=== PATIENT | female | born 1975 | race Caucasian/White ===

== ENCOUNTER 2016-11-10 14:53 | Emergency (ER) | payer MEDICAID, OTHER ==
[~2016-11-10] VITALS: Ht 162.6 cm; Wt 76.0 kg
[2016-11-10 15:05] VITALS: Ht 162.6 cm; Wt 76.0 kg
[2016-11-10 19:22] LABS: BASOPHILS % 0.5 % (0.0-2.0); EOSINOPHILS # 0.2 10^3/ul (0.0-0.5); EOSINOPHILS % 2.1 % (0.0-7.0); HEMOGLOBIN 14.8 g/dl (12.0-16.0); LYMPHOCYTES # 3.3 10^3/ul (0.8-2.9); LYMPHOCYTES % 43.8 % (15.0-51.0); MEAN CORPUSCULAR HEMOGLOBIN 30.1 pg (29.0-33.0); MEAN CORPUSCULAR HGB CONC 34.4 g/dl (32.0-37.0); MEAN CORPUSCULAR VOLUME 87.6 fl (82.0-101.0); MEAN PLATELET VOLUME 9.7 fl (7.4-10.4); MONOCYTE # 0.7 10^3/ul (0.3-0.9); MONOCYTES % 9.1 % (0.0-11.0); NEUTROPHIL # 3.4 10^3/ul (1.6-7.5); NEUTROPHILS % 44.5 % (39.0-77.0); PLATELET COUNT 206 10^3/UL (140-440); RED BLOOD COUNT 4.91 10^6/ul (4.20-5.40); RED CELL DISTRIBUTION WIDTH 12.8 % (11.5-14.5); UNCORRECTED WBC 7.6 10^3/ul (4.8-10.8); WHITE BLOOD COUNT 7.6 10^3/ul (4.8-10.8)
[2016-11-10 19:27] LABS: CONDITION 1
[2016-11-10 19:39] LABS: ALBUMIN 4.8 g/dl (3.3-4.9); POTASSIUM 4.3 mmol/L (3.5-5.1)
[2016-11-10 19:41] LABS: BILIRUBIN,INDIRECT 0.2 mg/dl (0-1.1); BILIRUBIN,TOTAL 0.2 mg/dl (0.2-1.3); CREATININE 0.68 mg/dl (0.44-1.00)
[2016-11-10 19:42] LABS: ALBUMIN/GLOBULIN RATIO 1.11; CALCIUM 9.5 mg/dl (8.4-10.2); TOTAL PROTEIN 9.1 g/dl (6.1-8.1)
--- NOTE | 2016-11-10 19:56 | RADRPT ---
PROCEDURE: XR Chest. CLINICAL INDICATION: Chest pain. TECHNIQUE: Single frontal view of the chest was obtained COMPARISON: None ABNORMAL RESULTS: 3 CM MASS AT THE MEDIAL LEFT APEX REPRESENTS NEOPLASM, AND RECOMMEND CT CHEST. FINDINGS: The heart and mediastinum are within normal limits. Calcified thoracic aorta. 3 cm mass at medial left apex, and is represent neoplasm until proven otherwise. Recommend CT exami nation of the chest for further evaluation. There is no pleural effusion or pneumothorax. IMPRESSION: 3 cm mass at the medial left apex represents neoplasm until proven otherwise, and recommend CT corre lation. ABNORMAL RESULTS: 3 CM MASS AT THE MEDIAL LEFT APEX REPRESENTS NEOPLASM, AND RECOMMEND CT CHEST. RPTAT: [facility] [place] Date Time Electronically viewed and signed by Physician [place] on 11/10/2016 19:56 RS/
[2016-11-10 20:12] LABS: ADD UMIC YES; URINE BILIRUBIN (Dip) NEGATIVE (NEGATIVE); URINE BLOOD (Dip) 3+ (NEGATIVE); URINE COLOR LT. YELLOW (YELLOW); URINE GLUCOSE (Dip) NEGATIVE (NEGATIVE); URINE KETONES (Dip) NEGATIVE (NEGATIVE); URINE LEUKOCYTE ESTERASE (Dip) NEGATIVE (NEGATIVE); URINE NITRITE (Dip) NEGATIVE (NEGATIVE); URINE TOTAL PROTEIN (Dip) NEGATIVE (NEGATIVE); URINE UROBILINOGEN (Dip) 0.2 E.U./dL (0.1-1.0)
--- NOTE | 2016-11-10 20:13 | RADRPT ---
PROCEDURE: US Pelvis. CLINICAL INDICATION: Vaginal bleeding. TECHNIQUE: Multiple sonographic images of the pelvis were obtained utilizing a transabdominal and endovaginal technique. The images were reviewed on a PACS workstation. COMPARISON: None. FINDINGS: The uterus is visualized and measures 122 x 47 x 59 mm. 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 MRI would be of further use. The bilateral endometrial echo complexes are normal and each measure 8 mm. There is no evidenc e for free fluid. Nabothian cysts are seen. The right ovary has a normal echotexture and measures 24 x 10 x 11 mm . The left ovary has a large ovarian cyst measuring 31 mm, and the left ovary otherwise demonstrates normal echotexture and measu res 31 x 27 x 26 mm. No adnexal masses are noted. IMPRESSION: 1. 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 2. Bilateral endometrium are unremarkable, measuring up to 8 mm. 3. Large left ovarian cyst measures 31 mm. RPTAT: [facility] [place] Date Time Electronically viewed and signed by Physician [place] on 11/10/2016 20:12 RS/
[2016-11-10 20:26] LABS: BACTERIA,URINE FEW; SQUAMOUS EPITHELIAL CELL,UR FEW; URINE RBCS >50 /HPF (0)
--- NOTE | 2016-11-10 21:50 | RADRPT ---
PROCEDURE: CT Chest without contrast. CLINICAL INDICATION: Chest pain. Abnormal chest x-ray with a 3 cm mass in the left upper lobe. TECHNIQUE: Helical axial sections were obtained through the chest without intravenous contrast enh ancement. Coronal and sagittal reformatted images were obtained from the axial source images. Total exam DLP is 384.99 mGy-cm. CTDIvol is 10.09 mGy. One or more of the following dose reduction carlos hniques were used: Automated exposure control, adjustment of the mA and/or kV according to patient s ize, use of iterative reconstruction technique. COMPARISON: Chest x-ray done earlier the same day. FINDINGS: The lungs are clear with no airspace or interstitial disease. There is no pulmonary nodule or mass lesion. In particular, there is no abnormality in the left upp er lobe medially. The density on chest radiograph may have been due to overlying soft tissues. There is no mediastinal or hilar lymphadenopathy or mass. There is no axillary, supraclavicular, or internal mammary lymphadenopathy. The thoracic aorta is not dilated. The heart size is normal. There is no pleural effusion or pericardial effusion. Images through the upper abdomen demonstrate mildly diffusely decreased attenuation of the liver con sistent with fatty metamorphosis. The visualized portions of the liver, spleen, and adrenals are ot herwise normal. The osseous structures are unremarkable with no fracture or lytic lesion. IMPRESSION: 1. No abnormality in the left upper lobe medially at the site of the chest radiograph findings. Th is was probably due to overlying soft tissues. 2. Fatty liver. 3. Otherwise unremarkable noncontrast CT scan of the chest. RPTAT: QQ .Eladio Hopkins MD, Date Time Electronically viewed and signed by .Eladio Hopkins MD, on 11/10/2016 21:50 .R/
[2016-11-10] MEDS ORDERED: IBUP-1542 PO (22:07)
--- NOTE | 2016-11-10 22:16 | ERD ---
ER Documentation Chief Complaint Date/Time DATE: 11/10/16 TIME: 22:10 Chief Complaint LOWER ABDOMINAL PAIN, VAG BLEEDING X 3 MOS HPI 41-year-old female with no significant past medical history presents the ED complaining of vaginal bleeding that started 1 month ago. States that she has had to change 12 pads per day. States that her last menses was on November 04, 2015. States that normally her menses are regular however she did not have her menses for the past 3 months prior to this last menses until 1 month ago. States that she is a . Denies being sexually active. States that she has had a previous , cholecystectomy and appendectomy. States that she also has slight intermittent chest pain that started 2 months ago that does not radiate. Describes as a sharp feeling and rates it a 9 out of 10. Denies any family history of heart attacks. Denies any recent traveling or calf pain. ROS All systems reviewed and are negative except as per history of present illness. Medications Home Meds Active Scripts Ibuprofen* (Motrin*) 600 Mg Tab, 600 MG PO Q6, #30 TAB Prov:LAUREL BRODERICK PA-C 11/10/16 Allergies Allergies: Coded Allergies: No Known Allergy (Unverified , 10/14/12) PMhx/Soc History of Surgery: Yes (,Appy) Anesthesia Reaction: No Hx Neurological Disorder: No Hx Respiratory Disorders: No Hx Cardiac Disorders: No Hx Psychiatric Problems: No Hx Miscellaneous Medical Probl: Yes (Dysfunctional Uterine Bleed) Hx Alcohol Use: No Hx Substance Use: No Hx Tobacco Use: No Smoking Status: Never smoker Physical Exam Vitals Vital Signs Date Time Temp Pulse Resp B/P Pulse Ox O2 Delivery O2 Flow Rate FiO2 11/10/16 22:58 99.0 65 22 111/78 99 Room Air 11/10/16 15:05 98.1 80 18 154/73 98 Physical Exam Const: [id number], well-nourished. In no acute distress. Head: Atraumatic, normocephalic Eyes: Normal Conjunctiva without injection. No purulent discharge. PERRLA. EOMI ENT: Normal external ear. Ear canal without erythema. Tympanic membrane pearly felix without effusion or bulging. Nasal canal clear with normal turbinates. Moist oropharynx without tonsillar exudates. Non-erythematous pharynx. Uvula midline. No drooling. No trismus. Neck: No cervical midline tenderness. Full range of motion. No meningismus. No cervical lymphadenopathy. No JVD. Resp: Clear to auscultation bilaterally. No wheezing, rhonchi, rales, or crackles. No accessory muscle use. No retractions. Cardio: Regular rate and rhythm. No murmurs, rubs or gallops. Chest: Reproducible pain noted on the anterior chest. Abd: Soft, non tender, non distended. Normal bowel sounds. No palpable masses. No rebound tenderness. No guarding. Negative McBurney's Point. Negative Gomez's Sign. : Looking MDM for examination details. Skin: Normal skin turgor. No petechiae or rashes Back: No midline tenderness. No CVA tenderness. Ext: No cyanosis, or edema. Distal pulses intact bilaterally. Neur: Awake and alert. Normal gait. Normal coordination. Cranial Nerves II- VII intact. Normal finger to nose. Muscle strength 5/5. Sensation intact. Psych: Normal Mood and Affect Result Diagram: 11/10/16185611/10/161856 Results 24 hrs Laboratory Tests Test 11/10/16 18:57 Alanine Aminotransferase (ALT/SGPT) 60IU/L Albumin 4.8g/dl Albumin/Globulin Ratio 1.11 Alkaline Phosphatase 73IU/L Anion Gap 20 Aspartate Amino Transf (AST/SGOT) 44IU/L Basophils # 0.010^3/ul Basophils % 0.5% Blood Urea Nitrogen 12mg/dl Calcium Level 9.5mg/dl Carbon Dioxide Level 24mmol/L Chloride Level 103mmol/L Creatinine 0.68mg/dl Direct Bilirubin 0.00mg/dl Eosinophils # 0.210^3/ul Eosinophils % 2.1% Globulin 4.30g/dl Glucose Level 79mg/dl Hematocrit 43.0% Hemoglobin 14.8g/dl Indirect Bilirubin 0.2mg/dl Lipase 90U/L Lymphocytes # 3.310^3/ul Lymphocytes % 43.8% Mean Corpuscular Hemoglobin 30.1pg Mean Corpuscular Hemoglobin Concent 34.4g/dl Mean Corpuscular Volume 87.6fl Mean Platelet Volume 9.7fl Monocytes # 0.710^3/ul Monocytes % 9.1% Neutrophils # 3.410^3/ul Neutrophils % 44.5% Nucleated Red Blood Cells # 0.010^3/ul Nucleated Red Blood Cells % 0.0/100WBC Platelet Count 30693^3/UL Potassium Level 4.3mmol/L Red Blood Count 4.9110^6/ul Red Cell Distribution Width 12.8% Sodium Level 143mmol/L Total Bilirubin 0.2mg/dl Total Protein 9.1g/dl Urine Bacteria FEW Urine Bilirubin NEGATIVE Urine Clarity CLEAR Urine Color LT. YELLOW Urine Glucose NEGATIVE% Urine Hemoglobin 3+ Urine Ketones NEGATIVE Urine Leukocyte Esterase NEGATIVE Urine Microscopic RBC >50/HPF Urine Microscopic WBC 0-2/HPF Urine Nitrite NEGATIVE Urine Specific Wells 1.010 Urine Squamous Epithelial Cells FEW Urine Total Protein NEGATIVE Urine Urobilinogen 0.2 E.U./dL Urine pH 8.0 White Blood Count 7.610^3/ul Procedures/MDM This is a 41-year-old female who is a presents the ED complaining of vaginal bleeding that started 1 month ago. Patient is afebrile nontoxic appearing. Patient has normal vital signs. An ultrasound, beta-hCG, CBC, type and RH, UA was ordered to evaluate patient. Since patient reported of intermittent chest pain since 2 months ago, CXR and EKG was ordered to further evaluate patient. CBC: No leukocytosis. No e/o of systemic infection. No e/o anemia. CMP: No e/o severe acidosis, alkalosis, renal failure, diabetic ketoacidosis, liver disease Lipase within normal limits. Urine: No leukocyte esterase, no nitrites, no hematuria. 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 CLINICAL INDICATION: Vaginal bleeding. TECHNIQUE: Multiple sonographic images of the pelvis were obtained utilizing a transabdominal and endovaginal technique. The images were reviewed on a PACS workstation. COMPARISON: None. FINDINGS: The uterus is visualized and measures 122 x 47 x 59 mm. 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 MRI would be of further use. The bilateral endometrial echo complexes are normal and each measure 8 mm. There is no evidence for free fluid. Nabothian cysts are seen. The right ovary has a normal echotexture and measures 24 x 10 x 11 mm . The left ovary has a large ovarian cyst measuring 31 mm, and the left ovary otherwise demonstrates normal echotexture and measures 31 x 27 x 26 mm. No adnexal masses are noted. IMPRESSION: 1. 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 2. Bilateral endometrium are unremarkable, measuring up to 8 mm. 3. Large left ovarian cyst measures 31 mm. Patient's bleeding symptoms have stabilized while in the department. Patient likely has dysfunctional uterine bleeding. This case was discussed with my supervising physician, Dr. Dalton. Low suspicion for symptomatic anemia, ectopic , sepsis, PID, appendicitis, ovarian torsion, tubo-ovarian abscess, surgical abdomen, or other emergent conditions. PROCEDURE: XR Chest. CLINICAL INDICATION: Chest pain. TECHNIQUE: Single frontal view of the chest was obtained COMPARISON: None ABNORMAL RESULTS: 3 CM MASS AT THE MEDIAL LEFT APEX REPRESENTS NEOPLASM, AND RECOMMEND CT CHEST. FINDINGS: The heart and mediastinum are within normal limits. Calcified thoracic aorta. 3 cm mass at medial left apex, and is represent neoplasm until proven otherwise. Recommend CT examination of the chest for further evaluation. There is no pleural effusion or pneumothorax. IMPRESSION: 3 cm mass at the medial left apex represents neoplasm until proven otherwise, and recommend CT correlation. ABNORMAL RESULTS: 3 CM MASS AT THE MEDIAL LEFT APEX REPRESENTS NEOPLASM, AND RECOMMEND CT CHEST. PROCEDURE: CT Chest without contrast. CLINICAL INDICATION: Chest pain. Abnormal chest x-ray with a 3 cm mass in the left upper lobe. TECHNIQUE: Helical axial sections were obtained through the chest without intravenous contrast enhancement. Coronal and sagittal reformatted images were obtained from the axial source images. Total exam DLP is 384.99 mGy-cm. CTDIvol is 10.09 mGy. One or more of the following dose reduction techniques were used: Automated exposure control, adjustment of the mA and/or kV according to patient size, use of iterative reconstruction technique. COMPARISON: Chest x-ray done earlier the same day. FINDINGS: The lungs are clear with no airspace or interstitial disease. There is no pulmonary nodule or mass lesion. In particular, there is no abnormality in the left upper lobe medially. The density on chest radiograph may have been due to overlying soft tissues. There is no mediastinal or hilar lymphadenopathy or mass. There is no axillary, supraclavicular, or internal mammary lymphadenopathy. The thoracic aorta is not dilated. The heart size is normal. There is no pleural effusion or pericardial effusion. Images through the upper abdomen demonstrate mildly diffusely decreased attenuation of the liver consistent with fatty metamorphosis. The visualized portions of the liver, spleen, and adrenals are otherwise normal. The osseous structures are unremarkable with no fracture or lytic lesion. IMPRESSION: 1. No abnormality in the left upper lobe medially at the site of the chest radiograph findings. This was probably due to overlying soft tissues. 2. Fatty liver. 3. Otherwise unremarkable noncontrast CT scan of the chest. EKG reviewed and interpreted by Dr. Dalton Rate/Rhythm: [68 bpm, Normal Sinus Rhythm] No ectopy, no ST elevations, normal axis. QRS, ST, T-waves: [No changes consistent w/ acute ischemia] Impression: [No evidence of ischemia or arrhythmia] Patient reports that she feels nervous. Patient can likely have possible anxiety. No evidence of mass on CT of chest. Low suspicion for acute myocardial infarction, pneumothorax, pneumonia, cardiac tamponade, pulmonary embolism, AAA , aortic dissection, Boerhaave's syndrome, cardiac dysrhythmias,meningitis, intracranial bleed, seizure, stroke, TIA or other emergent conditions. This case was discussed with my supervising physician, Dr. Dalton who agreed with the management and discharge plan. Discharge medications: Ibuprofen Patient to follow up with [facility] fabricator and assembler in 2 days for further evaluation and treatment. Patient is to return sooner to the ED for any worsening symptoms. Patient's questions were answered. Patient understood and agreed with discharge plan. Departure Diagnosis: Primary Impression: Dysfunctional uterine bleeding Additional Impression: Chest pain Chest pain type: unspecified Qualified Code: R07.9 - Chest pain, unspecified type Condition: Stable Patient Instructions: Anxiety Reaction, Chest Pain, Uncertain Cause, Chest Wall Pain, Costochondritis, Dysfunctional Uterine Bleeding Referrals: COMMUNITY CLINICS YOU HAVE RECEIVED A MEDICAL SCREENING EXAM AND THE RESULTS INDICATE THAT YOU DO NOT HAVE A CONDITION THAT REQUIRES URGENT TREATMENT IN THE EMERGENCY DEPARTMENT. FURTHER EVALUATION AND TREATMENT OF YOUR CONDITION CAN WAIT UNTIL YOU ARE SEEN IN YOUR DOCTORS OFFICE WITHIN THE NEXT 1-2 DAYS. IT IS YOUR RESPONSIBILITY TO MAKE AN APPOINTMENT FOR FOLOW-UP CARE. IF YOU HAVE A PRIMARY DOCTOR --you should call your primary doctor and schedule an appointment IF YOU DO NOT HAVE A PRIMARY DOCTOR YOU CAN CALL OUR PHYSICIAN REFERRAL HOTLINE AT IF YOU CAN NOT AFFORD TO SEE A PHYSICIAN YOU CAN CHOSE FROM THE FOLLOWING [facility] CLINICS [facility] [address] [facility] [address] [facility] [address] [facility] [address] [facility] [address] [facility]. [facility] [address] [facility]. [facility] YOU HAVE RECEIVED A MEDICAL SCREENING EXAM AND THE RESULTS INDICATE THAT YOU DO NOT HAVE A CONDITION THAT REQUIRES URGENT TREATMENT IN THE EMERGENCY DEPARTMENT. FURTHER EVALUATION AND TREATMENT OF YOUR CONDITION CAN WAIT UNTIL YOU ARE SEEN IN YOUR DOCTORS OFFICE WITHIN THE NEXT 1-2 DAYS. IT IS YOUR RESPONSIBILITY TO MAKE AN APPOINTMENT FOR [facility] CARE. IF YOU HAVE A PRIMARY DOCTOR --you should call your primary doctor and schedule and appointment IF YOU DO NOT HAVE A PRIMARY DOCTOR YOU CAN CALL OUR PHYSICIAN REFERRAL HOTLINE AT . IF YOU CAN NOT AFFORD TO SEE A PHYSICIAN YOU CAN CHOSE FROM THE FOLLOWING [facility] INSTITUTIONS: [facility] [address] [place] [address] [facility] [address] [place] [address] [facility] [address] [place] [address] [facility] [employer] [place] [address] [facility] [address] [place], [place] [phone] OFFICE FAX RADHA RICHARDS [address] [place] [address] [address] [facility] [address] [place] [place] [phone] SOTO, [facility] [address] [facility] [address] [address] GOLDBERG, [place] [address] [place] [place] [phone] [facility] [place] [address] [place] [address] [address] [facility] [address] - [address] GUAMAN, MARK [address], [facility] [phone] DR NATARAJAN, A[place] [address] [facility] [address], [facility] [id number] DR AHUMADA, FART[place] [address] [place], [place] [phone] [facility] Hours: 8:00 am - 5:00 pm Additional Instructions: Seguimiento con gusman PCP ulices remisin a Ginecolog y neumlogo Regrese a estas instalaciones si no se mejora kj esperbamos o kj le dimarialuisamos. LAUREL BRODERICK PA-C Nov 10, 2016 22:16
[2016-11-10 22:58] VITALS: BP 111/78; PULSE 65; RESP 22; TEMP 99
== END 2016-11-10 22:45 | disposition home or self-care (01) ==
LOC: FTE 14:53
DX: N93.8 Other specified abnormal uterine and vaginal bleeding (principal); R07.9 Chest pain, unspecified
CPT/HCPCS: 36415; 71010; 71250; 76830; 76856; 80053; 81001; 83690; 85025; 93005; Z7502; 81003

== ENCOUNTER 2017-01-24 01:35 | Emergency (ER) | payer OTHER ==
[~2017-01-24] VITALS: Ht 165.1 cm; Wt 77.3 kg
[~2017-01-24 01:35] MED LIST: IBUP-1542 PO
[2017-01-24 01:36] VITALS: Ht 165.1 cm; Wt 77.3 kg
[2017-01-24] MEDS ORDERED: SOD CHLORIDE 0.9% 1,000 ML IV STA (03:20)
[2017-01-24] MEDS ORDERED: ONDANSETRON 4 MG INJ IV STA (03:20)
[2017-01-24] MEDS ORDERED: morphine 4 MG/ML VIAL IV STA (03:20)
[2017-01-24 03:46] LABS: ADD SCAN DIFF NO
[2017-01-24 03:50] LABS: BASOPHILS % 0.7 % (0.0-2.0); EOSINOPHILS # 0.2 10^3/ul (0.0-0.5); EOSINOPHILS % 2.7 % (0.0-7.0); HEMATOCRIT 40.6 % (37.0-47.0); HEMOGLOBIN 13.6 g/dl (12.0-16.0); LYMPHOCYTES # 2.7 10^3/ul (0.8-2.9); LYMPHOCYTES % 49.5 % (15.0-51.0); MEAN CORPUSCULAR HEMOGLOBIN 29.6 pg (29.0-33.0); MEAN CORPUSCULAR HGB CONC 33.5 g/dl (32.0-37.0); MEAN CORPUSCULAR VOLUME 88.5 fl (82.0-101.0); MEAN PLATELET VOLUME 11.1 fl (7.4-10.4); MONOCYTE # 0.5 10^3/ul (0.3-0.9); MONOCYTES % 9.7 % (0.0-11.0); NEUTROPHILS % 37.2 % (39.0-77.0); PLATELET COUNT 283 10^3/UL (140-415); RED BLOOD COUNT 4.59 10^6/ul (4.20-5.40); RED CELL DISTRIBUTION WIDTH 12.5 % (11.5-14.5); WHITE BLOOD COUNT 5.5 10^3/ul (4.8-10.8)
[2017-01-24 04:00] LABS: PLATELET ESTIMATE PLT APPEAR ADEQUATE
--- NOTE | 2017-01-24 04:00 | ERD ---
ER Documentation Chief Complaint Date/Time DATE: 01/24/17 TIME: 03:58 Chief Complaint VAGINAL BLEEDING/CRAMPING. 1 PAD/20MIN X 4 DAYS. HPI 41-year-old female presents here in emergency department for complaints of vaginal bleeding for 4 days, soaked multiple pads every day, patient has had problems with heavy vaginal bleeding before, has never seen a gynecology specialist. Patient's complaining of pelvic pain cramping pain, 6/10 scale, not better or worse with anything. Patient denies being . Patient's last menstrual period was 12/14/2016, lasted for 10 days. Patient denies any other bleeding symptoms, denies any ecchymosis, gum bleeding, blood in the stool or black stool. Patient denies any hematuria. ROS All systems reviewed and are negative except as per history of present illness. Medications Home Meds Active Scripts Ibuprofen* (Motrin*) 600 Mg Tab, 600 MG PO Q6, #30 TAB Prov:LAUREL BRODERICK PA-C 11/10/16 Allergies Allergies: Coded Allergies: No Known Allergy (Unverified , 10/14/12) PMhx/Soc History of Surgery: Yes (, appendectomy) Anesthesia Reaction: No Hx Neurological Disorder: No Hx Respiratory Disorders: No Hx Cardiac Disorders: No Hx Psychiatric Problems: No Hx Miscellaneous Medical Probl: Yes (Dysfunctional Uterine Bleed) Hx Alcohol Use: No Hx Substance Use: No Hx Tobacco Use: No Smoking Status: Never smoker FmHx Family History: No coronary disease, No diabetes, No other Physical Exam Vitals Vital Signs Date Time Temp Pulse Resp B/P Pulse Ox O2 Delivery O2 Flow Rate FiO2 01/24/17 01:36 98.0 77 22 135/92 100 Physical Exam GENERAL: The patient is well developed and appropriate for usual state of health, in no apparent distress. CHEST: Clear to auscultation bilaterally. There are no rales, wheezes or rhonchi. HEART: Regular rate and rhythm. No murmurs, clicks, rubs or gallops. No S3 or S4. ABDOMEN: Soft, nontender and nondistended. Good bowel sounds. No rebound or guarding. No gross peritonitis. No gross organomegaly or masses. No Gomez sign or McBurney point tenderness. BACK: No midline or flank tenderness. EXTREMITIES: Equal pulses bilaterally. There is no peripheral clubbing, cyanosis or edema. No focal swelling or erythema. Full range of motion. Grossly neurovascularly intact. NEURO: Alert and oriented. Cranial nerves 2-12 intact. Motor strength in all 4 extremities with 5/5 strength. Sensation grossly intact. Normal speech and gait. SKIN: There is no apparent rash or petechia. The skin is warm and dry. HEMATOLOGIC AND LYMPHATIC: There is no evidence of excessive bruising or lymphedema. No gross cervical, axillary, or inguinal lymphadenopathy. Result Diagram: 01/24/17 0339 Results 24 hrs Laboratory Tests Test 01/24/17 03:39 01/24/17 03:40 White Blood Count 5.510^3/ul Red Blood Count 4.5910^6/ul Hemoglobin 13.6g/dl Hematocrit 40.6% Mean Corpuscular Volume 88.5fl Mean Corpuscular Hemoglobin 29.6pg Mean Corpuscular Hemoglobin Concent 33.5g/dl Red Cell Distribution Width 12.5% Platelet Count 07013^3/UL Mean Platelet Volume 11.1fl Neutrophils % 37.2% Lymphocytes % 49.5% Monocytes % 9.7% Eosinophils % 2.7% Basophils % 0.7% Nucleated Red Blood Cells % 0.0/100WBC Neutrophils # 2.010^3/ul Lymphocytes # 2.710^3/ul Monocytes # 0.510^3/ul Eosinophils # 0.210^3/ul Basophils # 0.010^3/ul Nucleated Red Blood Cells # 0.010^3/ul Platelet Estimate PLT APPEAR ADEQUATE Clumped Platelets RARE Large Platelets FEW Beta HCG, Quantitative < 2.4mIU/ml Urine Color BROWN Urine Clarity CLEAR Urine pH 5.5 Urine Specific [place] 1.010 Urine Ketones NEGATIVE Urine Nitrite NEGATIVE Urine Bilirubin NEGATIVE Urine Urobilinogen 0.2 E.U./dL Urine Leukocyte Esterase NEGATIVE Urine Microscopic RBC >200/HPF Urine Microscopic WBC 0-2/HPF Urine Mucus FEW Urine Hemoglobin 3+ Urine Glucose NEGATIVE% Urine Total Protein TRACE Current Medications Medications (Trade) Dose Ordered Sig/Tita Route PRN Reason Start Time Stop Time Status Last Admin Dose Admin Sodium Chloride (NS) 1,000 ml @ 1,000 mls/hr Q1H STAT IV 01/24/17 03:20 01/24/17 04:19 DC 01/24/17 03:59 Ondansetron HCl (Zofran Inj) 4 mg ONCE STAT IV 01/24/17 03:20 01/24/17 03:23 DC 01/24/17 03:57 Morphine Sulfate (morphine) 4 mg ONCE STAT IV 01/24/17 03:20 01/24/17 03:23 DC Ketorolac Tromethamine (Toradol) 30 mg ONCE ONCE IV 01/24/17 04:46 01/24/17 04:49 DC Normal saline IV bolus was given here in emergency department for rehydration, patient tolerated IV fluids.Patient was given medication for pain here in emergency department, after treatment, patient verbalized feeling much better. Patient's pain is improved. Zofran was given to prevent nausea and vomiting. PROCEDURE: Pelvic ultrasound. CLINICAL INDICATION: Vaginal bleeding. TECHNIQUE: Multiple sonographic images of the pelvis were obtained utilizing a transabdominal and endovaginal technique. The images were reviewed on a PACS workstation. COMPARISON: 11/10/2016. FINDINGS: The uterus is retroverted and demonstrates a bicornuate morphology measuring 8.8 x 4.7 x 7.6 cm. No abnormal uterine mass is identified. A Nabothian cyst is present. The endometrial echo complex is homogeneous and measures 6.7 mm. There is no evidence for free fluid. The right ovary measures 2.4 x 1.9 x 2.2 cm and demonstrates normal flow. The left ovary is not visualized. No adnexal masses are identified. IMPRESSION: Retroverted and bicornuate uterus. Left ovary not visualized. .Justin Wilks MD, Date Time Electronically viewed and signed by .Justin Wilks MD, on 01/24/2017 04:42 .T/ CC: KAROL RAYMUNDO [employer]MER Procedures/MDM Medical Decision Making: Patients vaginal bleeding is most likely consistent of dysfunctional uterine bleeding. Patient does not show any evidence of hypovolemic shock. Patients hemoglobin and hematocrit is stable. There is low suspicion for ectopic . CASTILLO results show show no uterine fibroids, bicornate uterus noted. BetaHCG Quantitative is low, negative for There is no signs of symptoms of dehydration. There is low suspicion for sepsis. Patient appears well and is hemodynamically stable. Disposition: Home. Condition: Stable Disposition: Ibuprofen, tramadol, ferrous sulfate, Colace Instructions: Patient is advised to do bed rest, avoid heavy lifting, and avoid having sex until cleared by gynecology doctor. Patient is advised to follow up with gynecology specialist for reevaluation of symptoms. Patient is advised that is symptoms are worst, severe bleeding, dizziness, severe abdominal pain, fever, worst signs and symptoms to return to the emergency department immediately. Departure Diagnosis: Primary Impression: Vaginal bleeding Condition: Stable Patient Instructions: Dysfunctional Uterine Bleeding Additional Instructions: Patient is advised to do bed rest, avoid heavy lifting, and avoid having sex until cleared by gynecology doctor. Patient is advised to follow up with gynecology specialist for reevaluation of symptoms. Patient is advised that is symptoms are worst, severe bleeding, dizziness, severe abdominal pain, fever, worst signs and symptoms to return to the emergency department immediately. KAROL RAYMUNDO NP Jan 24, 2017 04:00
[2017-01-24 04:09] LABS: PLATELETS CLUMPS RARE
[2017-01-24 04:19] LABS: ADD UMIC YES; URINE BILIRUBIN (Dip) NEGATIVE (NEGATIVE); URINE BLOOD (Dip) 3+ (NEGATIVE); URINE COLOR BROWN (YELLOW); URINE GLUCOSE (Dip) NEGATIVE (NEGATIVE); URINE KETONES (Dip) NEGATIVE (NEGATIVE); URINE LEUKOCYTE ESTERASE (Dip) NEGATIVE (NEGATIVE); URINE NITRITE (Dip) NEGATIVE (NEGATIVE); URINE TOTAL PROTEIN (Dip) TRACE (NEGATIVE); URINE UROBILINOGEN (Dip) 0.2 E.U./dL (0.1-1.0)
[2017-01-24 04:24] LABS: MUCUS,URINE FEW; URINE RBCS >200 /HPF (0)
--- NOTE | 2017-01-24 04:43 | RADRPT ---
PROCEDURE: Pelvic ultrasound. CLINICAL INDICATION: Vaginal bleeding. TECHNIQUE: Multiple sonographic images of the pelvis were obtained utilizing a transabdominal and endovaginal technique. The images were reviewed on a PACS workstation. COMPARISON: 11/10/2016. FINDINGS: The uterus is retroverted and demonstrates a bicornuate morphology measuring 8.8 x 4.7 x 7.6 cm. No abnormal uterine mass is identified. A Nabothian cyst is present. The endometrial echo complex is homogeneous and measures 6.7 mm. There is no evidence for free fluid. The right ovary measures 2.4 x 1.9 x 2.2 cm and demonstrates n ormal flow. The left ovary is not visualized. No adnexal masses are identified. IMPRESSION: Retroverted and bicornuate uterus. Left ovary not visualized. .Justin Wilks MD, Date Time Electronically viewed and signed by .Justin Wilks MD, MD on 01/24/2017 04:42 .T/
[2017-01-24] MEDS ORDERED: KETOROLAC 30 MG INJ IV ONE (04:46)
[2017-01-24] MEDS ORDERED: IBUP-1542 PO (04:58)
[2017-01-24] MEDS ORDERED: TRAM50TA2 PO (04:58)
[2017-01-24] MEDS ORDERED: DOCU-144 PO (04:58)
[2017-01-24] MEDS ORDERED: FER325 PO (04:58)
[2017-01-24 05:50] VITALS: BP 126/83; PULSE 74; RESP 17; TEMP 97.7
== END 2017-01-24 05:50 | disposition home or self-care (01) ==
LOC: FTE 01:35
DX: N93.9 Abnormal uterine and vaginal bleeding, unspecified (principal); R10.2 Pelvic and perineal pain
CPT/HCPCS: 36415; 76830; 76856; 81001; 84702; 85025; 86850; 86900; 86901; 96361; 96374; 96375; J1885; J2405; J7030; Z7502; 81003

== ENCOUNTER 2017-06-16 16:24 | Emergency (ER) | END 2017-06-16 18:40 | disposition home or self-care (01) | DX: S33.5XXA Sprain of ligaments of lumbar spine, initial encounter (principal); V89.2XXA Person injured in unspecified motor-vehicle accident, traffic, initial encounter | CPT/HCPCS: 72100; 96372; J1885; Z7502 ==

== ENCOUNTER 2018-01-23 20:26 | Emergency (ER) | END 2018-01-24 00:24 | disposition home or self-care (01) ==

== ENCOUNTER 2019-01-21 17:22 | Emergency (ER) | payer OTHER ==
[~2019-01-21] VITALS: Ht 167.6 cm; Wt 72.7 kg
[~2019-01-21 17:22] MED LIST changes: +DOCU-144 PO; +DOXY100T20 PO; +FER325 PO; +HYDR-4011 PO; +IBUP-1544 PO; +METR500T PO; +TRAM50TA2 PO
[2019-01-21 17:33] VITALS: Ht 167.6 cm; Wt 72.7 kg
[2019-01-21] MEDS ORDERED: ONDANSETRON 4 MG INJ IV STA (22:41)
[2019-01-21] MEDS ORDERED: morphine 4 MG/ML VIAL IV STA (22:41)
[2019-01-21] MEDS ORDERED: SOD CHLORIDE 0.9% 1,000 ML IV STA (22:41)
[2019-01-22] MEDS ORDERED: ONDA4TAB14 PO (02:57)
[2019-01-22] MEDS ORDERED: TRAM50TA2 PO (02:57)
[2019-01-22 03:07] VITALS: BP 118/82; PULSE 72; RESP 16
--- NOTE | 2019-01-22 03:07 | ERD ---
ER Documentation Chief Complaint Chief Complaint AP X 3 DAYS, WORSE AFTER EATING HPI This is a 43-year-old female who complains of abdominal pain for 3 days is worse after eating. Pain is mild to moderate in intensity with no exacerbating relieving factors. Mild associated nausea but no vomiting. No other current issues. Patient states that large fatty meals tend to cause the most pain. ROS All systems reviewed and are negative except as per history of present illness. Medications Home Meds Active Scripts Ondansetron (Ondansetron Odt) 4 Mg Tab.rapdis, 4 MG PO Q6H PRN for NAUSEA AND/OR VOMITING, #10 TAB Prov:BELIA AYON 01/22/19 Tramadol HCl (Tramadol HCl) 50 Mg Tablet, 50 MG PO Q4 PRN for PAIN, #20 TAB Prov:BELIA AYON 01/22/19 Discontinued Reported Medications [none] Unknown Strength No Conflict Check 01/23/18 Discontinued Scripts Metronidazole* (Flagyl*) 500 Mg Tablet, 500 MG PO TID for 10 Days, TAB Prov:KARLO RAYMUNDO NP 01/24/18 Ibuprofen* (Motrin*) 600 Mg Tab, 600 MG PO Q6H PRN for PAIN AND OR ELEVATED TEMP, #30 TAB Prov:KAROL RAYMUNDO NP 01/24/18 Hydrocodone/Acetaminophen (Kamrar 5-325 Tablet) 1 Each Tablet, 1 TAB PO Q6H PRN for PAIN, #20 TAB Prov:KAROL RAYMUNDO NP 01/24/18 Doxycycline Hyclate* (Doxycycline Hyclate*) 100 Mg Tablet.dr, 100 MG PO BID for 10 Days, TAB Prov:KAROL RAYMUNDO NP 01/24/18 Ibuprofen* (Ibuprofen*) 800 Mg Tablet, 800 MG PO Q8 for 10 Days, TAB Prov:MIMI HODGSON DO 09/03/17 Ibuprofen* (Motrin*) 600 Mg Tab, 600 MG PO Q6H PRN for PAIN, #20 TAB Prov:DALLAS CARIAS MD 06/16/17 Tramadol HCl (Tramadol HCl) 50 Mg Tablet, 50 MG PO Q4 PRN for PAIN, #20 TAB Prov:DALLAS CARIAS MD 06/16/17 Tramadol HCl (Tramadol HCl) 50 Mg Tablet, 50 MG PO Q6 for SEVERE PAIN LEVEL 7- 10, #20 TAB Prov:KAROL RAYMUNDO [employer] WORK[employer] 01/24/17 Ibuprofen* (Motrin*) 600 Mg Tab, 600 MG PO Q6H PRN for PAIN AND OR ELEVATED TEMP, #30 TAB Prov:KAROL RAYMUNDO [employer] 01/24/17 Docusate Sodium* (Colace*) 100 Mg Capsule, 100 MG PO TID, #30 CAP Prov:KAROL RAYMUNDO [employer] WORK[employer] 01/24/17 Ferrous Sulfate* (Ferrous Sulfate*) 325 Mg Tabec, 325 MG PO BID, #60 TAB Prov:KAROL RAYMUNDO [employer] WORK[employer] 01/24/17 Ibuprofen* (Motrin*) 600 Mg Tab, 600 MG PO Q6, #30 TAB Prov:LAUREL BRODERICK PA-C 11/10/16 Allergies Allergies: Coded Allergies: No Known Allergy (Unverified , 01/21/19) PMhx/Soc History of Surgery: Yes (C SECTION ) Anesthesia Reaction: No Hx Neurological Disorder: No Hx Respiratory Disorders: No Hx Cardiac Disorders: No Hx Psychiatric Problems: No Hx Miscellaneous Medical Probl: No Hx Alcohol Use: No Hx Substance Use: No Hx Tobacco Use: No Smoking Status: Never smoker Physical Exam Vitals Vital Signs Date Temp Pulse Resp B/P (MAP) Pulse Ox O2 O2 Flow FiO2 Time Delivery Rate 01/22/19 62 16 110/74 100 Room Air 02:06 (86) 01/21/19 77 16 128/87 100 Room Air 23:37 (101) 01/21/19 98.4 78 16 140/78 98 17:33 (98) Physical Exam Const: No acute distress Head: Atraumatic Eyes: Normal Conjunctiva ENT: Normal External Ears, Nose and Mouth. Neck: Full range of motion. No meningismus. Resp: Clear to auscultation bilaterally Cardio: Regular rate and rhythm, no murmurs Abd: Soft, non tender, non distended. Normal bowel sounds Skin: No petechiae or rashes Back: No midline or flank tenderness Ext: No cyanosis, or edema Neur: Awake and alert Psych: Normal Mood and Affect Result Diagram: 01/21/19 2330 3/20/19 2330 Results 24 hrs Laboratory Tests Test 01/21/19 23:25 01/21/19 23:30 POC Beta HCG, Qualitative NEGATIVE White Blood Count 8.4 10^3/ul Red Blood Count 4.60 10^6/ul Hemoglobin 13.6 g/dl Hematocrit 41.4 % Mean Corpuscular Volume 90.0 fl Mean Corpuscular Hemoglobin 29.6 pg Mean Corpuscular Hemoglobin Concent 32.9 g/dl Red Cell Distribution Width 12.7 % Platelet Count 316 10^3/UL Mean Platelet Volume 10.3 fl Immature Granulocytes % 0.400 % Neutrophils % 54.0 % Lymphocytes % 33.7 % Monocytes % 9.2 % Eosinophils % 2.1 % Basophils % 0.6 % Nucleated Red Blood Cells % 0.0 /100WBC Immature Granulocytes # 0.030 10^3/ul Neutrophils # 4.5 10^3/ul Lymphocytes # 2.8 10^3/ul Monocytes # 0.8 10^3/ul Eosinophils # 0.2 10^3/ul Basophils # 0.1 10^3/ul Nucleated Red Blood Cells # 0.0 10^3/ul Urine Color STRAW Urine Clarity CLEAR Urine pH 5.0 Urine Specific [place] 1.005 Urine Ketones NEGATIVE mg/dL Urine Nitrite NEGATIVE mg/dL Urine Bilirubin NEGATIVE mg/dL Urine Urobilinogen NEGATIVE mg/dL Urine Leukocyte Esterase TRACE Judi/ul Urine Microscopic RBC 1 /HPF Urine Microscopic WBC 4 /HPF Urine Squamous Epithelial Cells FEW /HPF Urine Bacteria FEW /HPF Urine Hemoglobin 2+ mg/dL Urine Glucose NEGATIVE mg/dL Urine Total Protein NEGATIVE mg/dl Sodium Level 141 mmol/L Potassium Level 4.2 mmol/L Chloride Level 101 mmol/L Carbon Dioxide Level 27 mmol/L Anion Gap 13 Blood Urea Nitrogen 11 mg/dl Creatinine 0.59 mg/dl Est Glomerular Filtrat Rate mL/min > 60 mL/min Glucose Level 109 mg/dl Calcium Level 9.6 mg/dl Total Bilirubin 0.2 mg/dl Direct Bilirubin 0.00 mg/dl Indirect Bilirubin 0.2 mg/dl Aspartate Amino Transf (AST/SGOT) 42 IU/L Alanine Aminotransferase (ALT/SGPT) 49 IU/L Alkaline Phosphatase 71 IU/L Total Protein 8.2 g/dl Albumin 4.5 g/dl Globulin 3.70 g/dl Albumin/Globulin Ratio 1.21 Lipase 109 U/L Current Medications Medications Dose Sig/Tita Start Time Status Last (Trade) Ordered Route PRN Stop Time Admin Dose Reason Admin Sodium 1,000 ml @ Q1H STAT 01/21/19 DC 01/21/19 Chloride 1,000 mls/hr IV 22:41 23:25 01/21/19 23:40 Morphine 4 mg ONCE STAT 01/21/19 DC 01/21/19 Sulfate IV 22:41 23:24 (morphine) 01/21/19 22:42 Ondansetron 4 mg ONCE STAT 01/21/19 DC 01/21/19 HCl (Zofran IV 22:41 23:24 Inj) 01/21/19 22:42 Procedures/MDM Emergency department course: Patient seen and evaluated triage nurse. Placed in bed from evaluation. Given pain medications. A stat ultrasound. Pain resolved here. Serial exams were normal. Diagnostic data ultrasound shows no acute process. Please see radiologist full dictation for full report. Medical decision making: Patient's gastrointestinal symptoms have stabilized while in the department. No evidence of severe dehydration, sepsis, or surgical abdomen. Extensive discussion with family and patient that occult disease cannot be ruled out. 8 hour recheck for repeat abdominal exam is planned. Departure Diagnosis: Primary Impression: Abdominal pain Abdominal location: unspecified location Qualified Codes: R10.9 - Unspecified abdominal pain Condition: Stable Patient Instructions: Abdominal Pain BELIA AYON Jan 22, 2019 03:06
== END 2019-01-22 03:17 | disposition home or self-care (01) ==
LOC: E/R 17:22
DX: R10.9 Unspecified abdominal pain (principal); R11.0 Nausea
CPT/HCPCS: 36415; 76705; 80053; 81001; 81025; 83690; 85025; 96374; 96375; J2270; J2405; J7030; Z7502

== ENCOUNTER 2019-06-27 10:10 | Emergency (ER) | payer OTHER ==
[~2019-06-27] VITALS: Wt 78.0 kg
[~2019-06-27 10:10] MED LIST changes: -DOCU-144 PO; -DOXY100T20 PO; -FER325 PO; -HYDR-4011 PO; -IBUP-1542 PO; -IBUP-1544 PO; -METR500T PO; +ONDA4TAB14 PO
[2019-06-27] MEDS ORDERED: ONDANSETRON (ODT) 4 MG TAB ODT STA (10:48)
[2019-06-27] MEDS ORDERED: ACETAMINOPHEN 500 MG TAB PO STA (10:48)
[2019-06-27] MEDS ORDERED: LIDOCAINE/MYLANTA 40 ML BTL PO ONE (11:00)
[2019-06-27 13:34] VITALS: BP 119/71; PULSE 78; RESP 20
== END 2019-06-27 13:34 | disposition home or self-care (01) ==
LOC: FTE 10:10
DX: N92.4 Excessive bleeding in the premenopausal period (principal); R40.2412 Glasgow coma scale score 13-15, at arrival to emergency department; S09.90XA Unspecified injury of head, initial encounter; R42 Dizziness and giddiness; X58.XXXA Exposure to other specified factors, initial encounter; Y92.9 Unspecified place or not applicable
CPT/HCPCS: 70450; 76705; 76856; 80048; 81001; 81025; 83690; 84484; 85025; 85610; 85730; 93005; Z7502; Z7610